=== PATIENT | male | born 1975 | race Caucasian/White ===

== ENCOUNTER 2022-09-11 20:23 | Emergency (ER) | payer OTHER, SELFPAY ==
[2022-09-11] VITALS (22 sets, daily range): BP systolic 163–190; BP diastolic 85–120; PULSE 63–96; RESP 16; TEMP 36.4; O2SAT 93–99; BMI 26.6
--- NOTE | 2022-09-11 20:36 | ED.NURSE ---
Hand cleansed in warm, soapy water per MD instructions. Imaging notified of STAT head CT.
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
--- NOTE | 2022-09-11 23:22 | PC.NURSE ---
in room sutures
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
== END 2022-09-12 00:28 | disposition home or self-care (01) ==
PROVIDERS: Emergency Provider Family Medicine
DX: S00.33XA Contusion of nose, initial encounter (principal); S01.511A Laceration without foreign body of lip, initial encounter; V86.56XA Driver of dirt bike or motor/cross bike injured in nontraffic accident, initial encounter
CPT/HCPCS: 12011; 70450; 94761; 99284; 99291